=== PATIENT | male | born 1990 | race Caucasian/White ===

== ENCOUNTER 2016-07-12 15:22 | Emergency (ER) | payer OTHER ==
[2016-07-12 15:32] VITALS: BP 129/77
--- NOTE | 2016-07-12 15:49 | UC ---
Throat Pain/Nasal Joshua HPI - HPI Summary HPI Summary: ST, nasal congestion since this morning. Son has strep. Denies cough, fever, or trouble breathing. - History of Current Complaint Chief Complaint: UCGeneralIllness Stated Complaint: SORE THROAT Time Seen by Provider: 07/12/16 15:38 Hx Obtained From: Patient Onset/Duration: Gradual Onset, Lasting Hours Severity: Mild - Allergies/Home Medications Allergies/Adverse Reactions: Allergies Allergy/AdvReac Type Severity Reaction Status Date / Time No Known Allergies Allergy Verified 07/12/16 15:32 Home Medications: Home Medications traZODone TAB* [Desyrel TAB*] 50 mg PO BEDTIME 07/12/16 [History Confirmed 07/12] PMH/Surg Hx/FS Hx/Imm Hx Previously Healthy: Yes - Surgical History Surgical History: Yes Surgery Procedure, Year, and Place: hernia surgery age 13. Adenoids age 6 - Family History Known Family History: Positive: Hypertension - Social History Lives: With Family Alcohol Use: None Substance Use Type: None Smoking Status (MU): Light Every Day Tobacco Smoker Review of Systems Constitutional: Negative Skin: Negative Eyes: Negative ENT: Sore Throat Respiratory: Negative Cardiovascular: Negative Gastrointestinal: Negative Genitourinary: Negative Motor: Negative Neurovascular: Negative Musculoskeletal: Negative Neurological: Negative Psychological: Negative All Other Systems Reviewed And Are Negative: Yes Physical Exam Triage Information Reviewed: Yes Appearance: No Pain Distress, Obese, Other: - poor grooming, marked odor Vital Signs: Initial Vital Signs Temp 97.7 F 07/12/16 15:30 Pulse 86 07/12/16 15:30 Resp 16 07/12/16 15:30 BP 129/77 07/12/16 15:30 Pulse Ox 98 07/12/16 15:30 Vital Signs Reviewed: Yes Eye Exam: Normal Eyes: Positive: Conjunctiva Clear ENT: Positive: Hearing grossly normal, TMs normal, Tonsillar swelling. Negative : Nasal drainage Dental Exam: Other - poor hygeine Dental: Positive: Gross Decay/Caries @ Neck exam: Normal Neck: Positive: Supple, Nontender, No Lymphadenopathy Respiratory Exam: Normal Respiratory: Positive: Chest non-tender, Lungs clear, Normal breath sounds, No respiratory distress, No accessory muscle use Cardiovascular Exam: Normal Cardiovascular: Positive: RRR, No Murmur Musculoskeletal Exam: Normal Neurological Exam: Normal Neurological: Positive: Alert, Muscle Tone Normal Psychological Exam: Normal Skin Exam: Normal Throat Pain/Nasal Course/Dx - Differential Dx/Diagnosis Provider Diagnoses: URI, likely viral Discharge - Discharge Plan Condition: Stable Disposition: HOME Patient Education Materials: Cold Symptoms (ED) Additional Instructions: Your rapid strep test was negative. If you have any fever or sudden worsening in the next few days, please return here for a recheck. Otherwise, you will probably have gradual worsening symptoms, probably with the addition of a cough , for the next 3-5 days, followed by a week or more of recovery time. Call or return if you develop increasing fever, shortness of breath, chest pain , bloody sputum, or otherwise worsen. If you have not improved at all after several days, contact your primary care physician or return here.
== END 2016-07-12 15:57 | disposition home or self-care (01) ==
LOC: UCCORT 15:22
DX: J06.9 Acute upper respiratory infection, unspecified (principal); E66.9 Obesity, unspecified; F17.210 Nicotine dependence, cigarettes, uncomplicated
CPT/HCPCS: 87651; 99201; G0463

== ENCOUNTER 2017-07-12 19:19 | Emergency (ER) | payer OTHER ==
--- NOTE | 2017-07-12 20:57 | UC ---
Throat Pain/Nasal Joshua HPI - HPI Summary HPI Summary: Patient was sore throat for 1 day denies fevers chills nausea vomiting denies body aches fatigue - History of Current Complaint Chief Complaint: UCRespiratory Stated Complaint: SORE THROAT Time Seen by Provider: 07/12/17 20:56 Hx Obtained From: Patient Onset/Duration: Sudden Onset Severity: Moderate Cough: None Associated Signs & Symptoms: Positive: Negative - Allergies/Home Medications Allergies/Adverse Reactions: Allergies Allergy/AdvReac Type Severity Reaction Status Date / Time No Known Allergies Allergy Verified 07/12/17 20:59 PMH/Surg Hx/FS Hx/Imm Hx Previously Healthy: Yes - Surgical History Surgical History: Yes Surgery Procedure, Year, and Place: hernia surgery age 13. Adenoids age 6 - Family History Known Family History: Positive: Hypertension - Social History Occupation: Employed Full-time - will start working on Monday Lives: With Family Alcohol Use: None Substance Use Type: None Smoking Status (MU): Light Every Day Tobacco Smoker Review of Systems ENT: Sore Throat Is Patient Immunocompromised?: No All Other Systems Reviewed And Are Negative: Yes Physical Exam Triage Information Reviewed: Yes Appearance: Ill-Appearing - Mild, Pain Distress, Obese Vital Signs Reviewed: Yes Eye Exam: Normal Eyes: Positive: Conjunctiva Clear ENT Exam: Normal ENT: Positive: Normal ENT inspection, Hearing grossly normal, Pharyngeal erythema, TMs normal, Tonsillar swelling, Tonsillar exudate. Negative: Nasal congestion, Trismus, Muffled voice, Hoarse voice, Dental tenderness, Sinus tenderness, Uvula midline Dental Exam: Normal Neck exam: Normal Neck: Positive: Supple, Nontender, No Lymphadenopathy Respiratory Exam: Normal Respiratory: Positive: Chest non-tender, Lungs clear, Normal breath sounds, No respiratory distress, No accessory muscle use Cardiovascular Exam: Normal Cardiovascular: Positive: RRR, No Murmur, Pulses Normal, Brisk Capillary Refill Musculoskeletal Exam: Normal Musculoskeletal: Positive: Strength Intact, ROM Intact, No Edema Neurological Exam: Normal Neurological: Positive: Alert, Muscle Tone Normal Psychological Exam: Normal Skin Exam: Normal Diagnostics - Laboratory Diagnostic Studies Completed/Ordered: Rapid strep a positive rapid strep a positive Throat Pain/Nasal Course/Dx - Course Assessment/Plan: Increase fluids rest Tylenol ibuprofen amoxicillin twice a day for 10 days follow with PCP when necessary referral has been made - Differential Dx/Diagnosis Provider Diagnoses: Strep pharyngitis Discharge - Sign-Out/Discharge Documenting (check all that apply): Discharge - Discharge Plan Condition: Stable Disposition: HOME Prescriptions: Amoxicillin PO (*) [Amoxicillin 875 MG (*)] 875 mg PO BID #20 tab Patient Education Materials: Ibuprofen (By mouth), Strep Throat (ED) Referrals: [facility] [place] [facility] [Outside] - If Needed - Billing Disposition and Condition Condition: STABLE Disposition: HOME
[2017-07-12 21:06] VITALS: BP 129/64
[2017-07-12] MEDS ORDERED: Amoxicillin PO (*) 500 MG CAP PO ONE (21:19)
== END 2017-07-12 21:32 | disposition home or self-care (01) ==
LOC: UCCORT 19:19
DX: J02.0 Streptococcal pharyngitis (principal); F17.210 Nicotine dependence, cigarettes, uncomplicated
CPT/HCPCS: 87651; 99212; G0463